=== PATIENT | female | born 1990 | race Caucasian/White ===

== ENCOUNTER 2017-11-18 21:41 | Emergency (ER) | payer OTHER ==
[~2017-11-18] VITALS: Ht 152.4 cm; Wt 114.0 kg
[~2017-11-18 21:41] MED LIST: ALBIPROI; AMOX250 PO; Amoxicillin500 MG PO; CIPR500 PO; Cleocin HCl300 MG PO; HYDACE5 PO; LIDO2L TOP; MULVITMINE; NITR100CA PO; Naprosyn500 MG PO; PHENA200 PO; Peridex480 ML PO; RXPHEN200 PO; SULTRISS PO; Veetids 500500 MG PO
[2017-11-18] MEDS ORDERED: Bactrim Ds Tab1 EACH PO (22:28)
[2017-11-18] MEDS ORDERED: Keflex500 MG PO (22:28)
[2018-08-23] MEDS ORDERED: Vitafol-Ob+Dha1 EACH PO (13:03)
[2018-08-26] MEDS ORDERED: Percocet 5-3251 EACH PO (13:31)
[2018-08-26] MEDS ORDERED: IBUP800 PO (13:39)
== END 2017-11-18 22:36 | disposition home or self-care (01) ==
LOC: ER 21:41
DX: L03.116 Cellulitis of left lower limb (principal); F17.210 Nicotine dependence, cigarettes, uncomplicated
CPT/HCPCS: 81000; 81025; 99283

== ENCOUNTER 2018-04-22 22:39 | Emergency (ER) | payer OTHER ==
[~2018-04-22] VITALS: Ht 165.1 cm; Wt 56.2 kg
[~2018-04-22 22:39] MED LIST changes: +Bactrim Ds Tab1 EACH PO; +Keflex500 MG PO
[2018-04-23] MEDS ORDERED: Veetids 500500 MG PO (01:24)
== END 2018-04-23 01:35 | disposition home or self-care (01) ==
LOC: ER 22:39
DX: O99.612 Diseases of the digestive system complicating pregnancy, second trimester (principal); K08.89 Other specified disorders of teeth and supporting structures; Z3A.21 21 weeks gestation of pregnancy
CPT/HCPCS: 64400; 99282-25

== ENCOUNTER → 2023-02-12 | Outpatient (CLI) | payer OTHER ==
[~2023-02-12] MED LIST changes: +IBUP800 PO; +Percocet 5-3251 EACH PO; +Vitafol-Ob+Dha1 EACH PO
[2023-02-13 11:52] LABS: Candida species (DNA Probe) Negative (NEGATIVE); G. vaginalis (DNA Probe) Positive (NEGATIVE); T. vaginalis (DNA Probe) Negative (NEGATIVE)
[2023-02-14 14:08] LABS: HPV 16 Negative (Negative); HPV 18 Negative (Negative); HPV OTHER HR TYPES Negative (Negative)
== END | disposition home or self-care (01) ==
LOC: LAB SHORT 14:30 → LAB 14:30
PROVIDERS: Nurse Practitioner Family
DX: Z01.419 Encounter for gynecological examination (general) (routine) without abnormal findings (principal); Z11.3 Encounter for screening for infections with a predominantly sexual mode of transmission
CPT/HCPCS: 87480; 87510; 87624; 87660; G0145

== ENCOUNTER 2023-02-28 12:30 | Day surgery (SDC) | payer OTHER ==
[~2023-02-28] VITALS: Ht 152.4 cm; Wt 75.3 kg
[2023-02-28] MEDS ORDERED: NAPR500 (12:46)
[2023-02-28] MEDS ORDERED: VRAYLAR3 MG (12:46)
[2023-02-28] MEDS ORDERED: FERSU300 (12:47)
[2023-02-28] MEDS ORDERED: ESCI10 (12:47)
[2023-02-28] MEDS ORDERED: VITAMIN D310 MC4 (12:47)
[2023-02-28] MEDS ORDERED: ROPI1 (12:48)
[2023-02-28] MEDS ORDERED: GABA100 (12:48)
[2023-02-28] MEDS ORDERED: TRAZ100 (12:48)
[2023-02-28 15:57] VITALS: BP 108/81
== END 2023-02-28 15:40 | disposition home or self-care (01) ==
LOC: ORSCSDS 12:30
PROVIDERS: Internal Medicine Gastroenterology
PROC: 0DBH8ZX Excision of Cecum, Via Natural or Artificial Opening Endoscopic, Diagnostic (ICD-10-PCS; principal; 2023-02-28 13:45)
PROC: 0DBP8ZX Excision of Rectum, Via Natural or Artificial Opening Endoscopic, Diagnostic (ICD-10-PCS; principal; 2023-02-28 13:45)
PROC: 0DBE8ZX Excision of Large Intestine, Via Natural or Artificial Opening Endoscopic, Diagnostic (ICD-10-PCS; principal; 2023-02-28 13:45)
DX: R19.4 Change in bowel habit (principal); R19.5 Other fecal abnormalities; R19.7 Diarrhea, unspecified; D12.0 Benign neoplasm of cecum; K62.1 Rectal polyp; K64.8 Other hemorrhoids; Z79.899 Other long term (current) drug therapy; Z87.891 Personal history of nicotine dependence
CPT/HCPCS: 88305; J2704; J7120